=== PATIENT | male | born 1940 | race Two or more races ===

== ENCOUNTER 2018-04-16 10:36 | Outpatient (CLI) | payer OTHER | END 2018-04-16 10:45 | disposition home or self-care (01) | LOC: RAD 501 10:36 | DX: Z96.651 Presence of right artificial knee joint (principal); Z96.652 Presence of left artificial knee joint ==

== ENCOUNTER 2018-04-16 14:07 | Outpatient (CLI) | payer OTHER | END 2018-04-16 14:10 | disposition home or self-care (01) | LOC: LAB 14:07 | DX: E55.9 Vitamin D deficiency, unspecified (principal); M85.9 Disorder of bone density and structure, unspecified; E56.1 Deficiency of vitamin K ==

== ENCOUNTER 2020-06-20 06:45 | Outpatient (CLI) | payer OTHER | END 2020-06-20 13:33 | disposition home or self-care (01) | LOC: LAB 06:45 | PROVIDERS: ATTEND Orthopaedic Surgery | DX: M85.88 Other specified disorders of bone density and structure, other site (principal); E55.9 Vitamin D deficiency, unspecified; E21.2 Other hyperparathyroidism; E88.89 Other specified metabolic disorders; M81.8 Other osteoporosis without current pathological fracture; E56.1 Deficiency of vitamin K ==

== ENCOUNTER 2020-06-20 10:14 | Outpatient (CLI) | payer OTHER | END 2020-06-20 10:16 | disposition home or self-care (01) | LOC: NUCLEAR 10:14 | PROVIDERS: ATTEND Orthopaedic Surgery | DX: M81.0 Age-related osteoporosis without current pathological fracture (principal); E55.9 Vitamin D deficiency, unspecified ==

== ENCOUNTER 2021-06-29 07:39 | Outpatient (CLI) | payer OTHER | END 2021-06-29 07:41 | disposition home or self-care (01) | LOC: LAB 07:39 | PROVIDERS: ATTEND Internal Medicine | DX: E55.9 Vitamin D deficiency, unspecified (principal); E56.1 Deficiency of vitamin K ==

== ENCOUNTER 2022-07-09 13:38 | Outpatient (CLI) | payer OTHER | END 2022-07-09 13:47 | disposition home or self-care (01) | LOC: LAB 13:38 | PROVIDERS: ATTEND Orthopaedic Surgery | DX: E56.1 Deficiency of vitamin K (principal); Z96.653 Presence of artificial knee joint, bilateral ==

== ENCOUNTER 2022-07-31 10:46 | Outpatient (CLI) | payer OTHER | END 2022-07-31 10:47 | disposition home or self-care (01) | LOC: NUCLEAR 10:46 | PROVIDERS: ATTEND Orthopaedic Surgery | DX: M81.0 Age-related osteoporosis without current pathological fracture (principal) ==

== ENCOUNTER → 2023-07-07 10:50 | Outpatient (CLI) | payer OTHER | END | disposition home or self-care (01) | LOC: LAB 10:50 | PROVIDERS: ATTEND Orthopaedic Surgery | DX: M85.9 Disorder of bone density and structure, unspecified (principal); E83.42 Hypomagnesemia; E56.1 Deficiency of vitamin K ==

== ENCOUNTER → 2024-07-22 06:40 | Outpatient (CLI) | payer OTHER | END | disposition home or self-care (01) | LOC: LAB 06:40 | PROVIDERS: ATTEND Orthopaedic Surgery | DX: E55.9 Vitamin D deficiency, unspecified (principal); M85.9 Disorder of bone density and structure, unspecified; E56.1 Deficiency of vitamin K ==

== ENCOUNTER 2024-07-22 07:25 | Outpatient (CLI) | payer OTHER | END 2024-07-22 07:30 | disposition home or self-care (01) | LOC: RAD 07:25 | PROVIDERS: ATTEND Orthopaedic Surgery | DX: Z96.653 Presence of artificial knee joint, bilateral (principal) ==

== ENCOUNTER 2024-08-03 12:54 | Outpatient (CLI) | payer OTHER | END 2024-08-03 13:00 | disposition home or self-care (01) | LOC: NUCLEAR 12:54 | PROVIDERS: ATTEND Orthopaedic Surgery | DX: M81.0 Age-related osteoporosis without current pathological fracture (principal) ==